=== PATIENT | male | born 1970 | race Caucasian/White ===

== ENCOUNTER → 2018-08-13 14:19 | Outpatient (CLI) | payer BC, SELFPAY ==
[2018-08-13 10:04] VITALS: BMI 25.0
== END ==
PROVIDERS: Family Provider Family Medicine; PCP Family Medicine; Referring Provider Physician Assistant; Visit Provider Physician Assistant
DX: J02.9 Acute pharyngitis, unspecified (principal)
CPT/HCPCS: 87081

== ENCOUNTER 2018-09-19 06:50 | Emergency (ER) | payer BC, SELFPAY ==
[2018-08-13 10:04] VITALS: BMI 25.0
[2018-09-19 06:51] VITALS: BP 172/99; PULSE 105; RESP 18; TEMP 37; O2SAT 100; BMI 27.2
--- NOTE | 2018-09-19 07:05 | ED.VISSUMM ---
- ER Visit Summary Date of Service: 09/19/18 Chief Complaint: Rectal pain History of Present Illness: The patient is a 48 M presents to the emergency department with rectal pain. The patient is otherwise healthy. He only has history of depression. He states on Saturday, he began to have some tenderness around his rectum especially when trying move his bowels. He states he felt a small lump. He thought that it may have been a hemorrhoid. He is tried some topical therapy with little improvement. Over the past 2 days, the pain is worsened. He states it is very uncomfortable especially when he is walking. He has not been straining to move his bowels. He states the area has gotten more swollen. He is also been having some difficulty urinating and having a decreased stream which he states is abnormal for him. He does not think he had fever. He has no history of immunosuppression. He denies any history of inflammatory bowel disease. Physical Examination: Vital signs reviewed General: Well-nourished, well-developed Head: Normocephalic, atraumatic Eyes: Pupils equal and reactive, extraocular muscles intact Neck, supple, no lymphadenopathy Heart: Regular rate and rhythm Respiratory: No distress, clear bilaterally Abdomen: Soft, nontender, nondistended, no peritoneal signs Rectal exam: Patient does have perianal abscess at the 6 o'clock position with significant tenderness. Mild induration. No crepitus. No evidence of Karla. Back: Nontender Extremities: Nontender, no edema, no cords Skin: Normal color no rash Neuro: Alert and oriented, no focal or lateralizing deficits Test Results: [] Emergency Department Course and Treatment: On patient arrival, I did discuss his case with Dr. Ann. She actually came down to the emergency department and evaluated him. He was consented for conscious sedation and incision and drainage. The patient was sedated with a total of 270 mg of propofol. The procedure was completed by Dr. Ann. Purulence was able to be expressed and a culture was sent. The patient was observed. He will be kept on oral antibiotics, analgesics, and stool softeners. He was counseled on concerning symptoms and reasons to return. He is going to follow with Dr. Ann in the office on Saturday or return with any worsening symptoms. Treatment Plan: [] Disposition: Discharge Impression: 1. Perianal abscess with incision and drainage by general surgery 2. Conscious sedation by emergency physician This note was generated with [employer] dictation software. It may contain incorrect words, spelling, and punctuation that were not noted in review of the chart prior to signing ED Disposition - Plan for ED Patient: Disposition: Home or Assisted Living Instructions: ED Chastity Anal Abscess IandD Prescriptions: Oxycodone HCl/Acetaminophen [Percocet 5/325] 1 tab PO Q6H PRN PRN 3 Days #12 tab PRN Reason: Pain Amox/Clavulanate Tablet [Augmentin Tablet] 875 mg PO Q12H #20 tab Docusate Sodium [Colace] 100 mg PO DAILY #20 cap Referrals: Rosa Ann MD [STAFF PHYSICIAN] - 3-5 Days
[2018-09-19 07:21] LABS: Absolute Lymphocyte Count 1.47 X10^3/ul (0.83-4.51); Basophil# 0.02 X10^3/uL; Basophil% 0.2 % (0-1); Eosinophil# 0.07 X10^3/uL; Eosinophils% 0.6 % (0-5); Hematocrit 38.3 % (40-54); Hemoglobin 12.3 g/dl (13.0-16.5); Lymphocyte # 1.47 X10^3/ul (4.0); Lymphocyte % 12.7 % (19-41); Mean Corp Hgb Conc 32.1 g/gl (32-36); Mean Corpuscular Hgb 30.1 pg (27.0-32.0); Mean Corpuscular Volume 93.6 fL (80-94); Mean Platelet Vol. 8.3 fl (6.2-12.0); Monocyte# 0.94 X10^3/uL; Monocyte% 8.2 % (0-10); Neutrophil # 9.01 X10^3/uL (2.7-7.7); Neutrophil % 78.1 % (47-70); Platelet Count 300 K/mm3 (150-450); RBC Distribution Width CV 13.6 % (11.6-14.6); RBC Distribution Width SD 47.2 fl (35.1-43.9); Red Blood Count 4.09 M/mm3 (4.6-6.2); White Blood Count 11.5 K/mm3 (4.4-11.0)
[2018-09-19 07:22] LABS: POSITIVE COUNT NO; POSITIVE DIFFERENTIAL NO; POSITIVE MORPHOLOGY NO
[2018-09-19] MEDS: Morphine 4 MG/ML Syringe IV (07:25)
[2018-09-19] MEDS: Ondansetron 4 MG/2 ML Vial IV (07:25)
[2018-09-19] MEDS: 0.9% Normal Saline 1,000 ML 1000 ML IV (07:25)
[2018-09-19 07:36] LABS: ALB/GLOB Ratio 0.8 RATIO (0.9-2.4); AST(SGOT) 13 U/L (15-37); Alanine Aminotransfer ALT/SGPT 19 U/L (16-61); Albumin, Serum 3.6 g/dL (3.2-5.0); Alkaline Phosphatase 68 U/L (45-117); Anion Gap 7 (5-15); BUN 14 mg/dL (7-18); BUN/Creat Ratio 18.1 RATIO (10-20); Calcium,Total 8.7 mg/dL (8.5-10.1); Chloride 106 mmol/L (98-107); Creatinine, Serum 0.78 mg/dL (0.70-1.30); EST Glomerular Filtration Rate 115 mL/min (>60); Est Glom Filt Rate - Afr Amer 139 mL/min (>60); Estimated Creatinine Clearance 129.89 ml/min; Globulin 4.5 g/dL (2.2-4.2); Glucose 129 mg/dL (74-106); Potassium 3.7 mmol/L (3.5-5.1); Protein, Total 8.1 g/dL (6.4-8.2); Sodium Level 140 mmol/L (136-145)
[2018-09-19 07:40] VITALS: BP 147/95; PULSE 87; RESP 12; O2SAT 100
[2018-09-19 07:47] VITALS: BP 126/72; BP 130/76; BP 132/80; BP 133/76; BP 150/98; PULSE 107; PULSE 84; PULSE 86; PULSE 88; PULSE 89; RESP 13; RESP 17; RESP 18; RESP 21; RESP 22; O2SAT 100; O2SAT 94; O2SAT 95; O2SAT 96; O2SAT 97
[2018-09-19] MEDS: Propofol 200 MG/20 ML Vial IV BOLUS (08:09)
[2018-09-19 08:11] VITALS: BP 142/77; O2SAT 97
[2018-09-19 08:13] VITALS: BP 142/77; PULSE 87; RESP 17; O2SAT 98
--- NOTE | 2018-09-19 08:40 | PCM.OPRPT ---
Report of Operation Date of Procedure: 09/19/18 Pre-Operative Diagnosis: perianal abscess Post-Operative Diagnosis: same Surgery/Procedure Performed:: incision and drainage of perianal abscess Description of Surgical Findings:: perianal abscess at 5 -6 oclock location, extends radially Type of Anesthesia:: MAC Anesthesiologist: Guicho Collins Specimen's removed: culture of purulent fluid from abscess Estimated Blood Loss (mL): < 10 ml Fluids Replaced: 100 cc RL Description of Procedure: Asked to see patient in ED with perianal abscess. Concern over some urinary complaints as well, but by my examination, abscess does not extend deep into perineum so should not be affecting urethra After informed consent was given, the patient was placed in the prone position. IV conscious sedation was then administered by the ED physician. The patient?s p;erianal area was prepped with iodine. The skin and subcutaneous tissues in and around the lesion were then infiltrated with 1% xylocaine with epinephrine - total of 20 ml used. A skin incision was then made with a 15 blade scalpel overlying the lesion in a radial, elliptical fashion so as to unroof the abscess cavity. Purulent fluid emanated from this and thus the abscess was drained. Cultures were taken of this fluid. Hemostasis was achieved by pressure application. The wound cavity was 4 x 2 cm with a depth of 1.5 cm. The cavity was densely packed with gauze. Dressing was applied over wound. The patient tolerated the procedure well. - Complications none noted
[2018-09-19 09:00] VITALS: BP 136/74; PULSE 62; RESP 15; O2SAT 98
[2018-09-19] MEDS: Amox/Clavulanate 875 MG Tablet PO (09:10)
== END 2018-09-19 09:38 | disposition home or self-care (01) ==
PROVIDERS: Emergency Provider Emergency Medicine; Family Provider Family Medicine; PCP Family Medicine
DX: K61.0 Anal abscess (principal); R39.12 Poor urinary stream; F32.9 Major depressive disorder, single episode, unspecified; Z79.899 Other long term (current) drug therapy
CPT/HCPCS: 46050; 10060; 80053; 85025; 87070; 87075; 87076; 87077; 87186; 87205; 96361; 96374; 96375; 99152; 99285; J7030; A4216; J2405

== ENCOUNTER 2021-05-23 11:13 | Outpatient (CLI) | payer BC, SELFPAY ==
[2021-05-23 15:25] LABS: ALB/GLOB Ratio 0.9 RATIO (0.9-2.4); AST(SGOT) 33 U/L (15-37); Alanine Aminotransfer ALT/SGPT 62 U/L (16-61); Alkaline Phosphatase 66 U/L (45-117); Anion Gap 11 (5-15); BUN 14 mg/dL (7-18); BUN/Creat Ratio 18.3 RATIO (10-20); Calcium,Total 9.2 mg/dL (8.5-10.1); Chloride 101 mmol/L (98-107); Cholesterol 259 mg/dL (200); Creatinine, Serum 0.77 mg/dL (0.70-1.30); EST Glomerular Filtration Rate 115 mL/min (>60); Est Glom Filt Rate - Afr Amer 139 mL/min (>60); Globulin 4.4 g/dL (2.2-4.2); Glucose 100 mg/dL (74-106); High Density Lipoprotein 75 mg/dL; Potassium 3.8 mmol/L (3.5-5.1); Protein, Total 8.4 g/dL (6.4-8.2); Sodium Level 138 mmol/L (136-145); Triglycerides 162 mg/dL; Very Low Density Lipoprotein 32 mg/dL (5-40)
== END 2021-05-23 23:59 | disposition short-term general hospital (02) ==
LOC: MFPLAB 11:14
PROVIDERS: PCP Family Medicine; Referring Provider Family Medicine; Visit Provider Family Medicine
DX: Z00.00 Encounter for general adult medical examination without abnormal findings (principal)
CPT/HCPCS: 36415; 80053; 80061

== ENCOUNTER → 2022-10-15 | Outpatient (CLI) | payer BC, SELFPAY ==
[2022-10-15 11:09] LABS: ALB/GLOB Ratio 0.9 RATIO (0.9-2.4); AST(SGOT) 35 U/L (15-37); Alanine Aminotransfer ALT/SGPT 59 U/L (16-61); Alkaline Phosphatase 64 U/L (45-117); Anion Gap 8 (5-15); BUN 12 mg/dL (7-18); BUN/Creat Ratio 15.6 RATIO (10-20); Calcium,Total 9.3 mg/dL (8.5-10.1); Chloride 104 mmol/L (98-107); Creatinine, Serum 0.77 mg/dL (0.70-1.30); EST Glomerular Filtration Rate 114 mL/min (>60); Est Glom Filt Rate - Afr Amer 137 mL/min (>60); Globulin 4.4 g/dL (2.2-4.2); Glucose 101 mg/dL (74-106); PSA,Total- Diagnostic 1.15 ng/mL (0.0-4.0); Protein, Total 8.4 g/dL (6.4-8.2); Sodium Level 139 mmol/L (136-145)
== END | disposition home or self-care (01) ==
LOC: MTLAB 08:49
PROVIDERS: PCP Family Medicine; Referring Provider Family Medicine; Visit Provider Family Medicine
DX: R73.01 Impaired fasting glucose (principal); Z12.5 Encounter for screening for malignant neoplasm of prostate
CPT/HCPCS: 36415; 80053; 84153

== ENCOUNTER 2022-12-03 04:05 | Emergency (ER) | payer BC, SELFPAY ==
[2022-12-03 04:08] VITALS: BP 200/113; PULSE 87; RESP 24; TEMP 36.4; O2SAT 99
[2022-12-03 04:36] VITALS: O2SAT 97
--- NOTE | 2022-12-03 04:36 | EKG12_ITS ---
Test Reason : CP Blood Pressure : / mmHG Vent. Rate : 072 BPM Atrial Rate : 072 BPM P-R Int : 144 ms QRS Dur : 098 ms QT Int : 408 ms P-R-T Axes : 010 -12 -03 degrees QTc Int : 446 ms Normal sinus rhythm Minimal voltage criteria for LVH, may be normal variant ( R in aVL ) Borderline ECG Confirmed by ANNY HIGGINBOTHAM, CATHY ([id number]), editor in chief newspaper [employer]OD[employer]IG[employer] ([id number]) on 12/05/2022 9:13:59 AM Referred By: PC Confirmed By:CATHY MCCORMICK MD
--- NOTE | 2022-12-03 04:45 | RAD_ITS ---
EXAM: XR CHEST, 1 VIEW CLINICAL INDICATION: chest pain TECHNIQUE: Frontal view of the chest. COMPARISON: Two-view chest 05/08/2016 FINDINGS: LUNGS AND PLEURAL SPACES: Unremarkable. No consolidation or edema. No pneumothorax. No effusion. HEART: Unremarkable. Cardiac silhouette not enlarged. MEDIASTINUM: Central airways and mediastinal contour are unremarkable. BONES/JOINTS: Unremarkable. SOFT TISSUES: Unremarkable. RAD/Chest 1 View (Portable) IMPRESSION: No radiographic evidence of acute cardiopulmonary disease. Electronically Signed: Reynaldo Hood MD at 5:04 EDT ,
[2022-12-03] MEDS: hydrOXYzine PAM 25 MG Capsule 50 MG PO (04:47)
--- NOTE | 2022-12-03 04:53 | EX.ED.DYSGE1 ---
HPI History of Present Illness Chief Complaint: Anxiety Narrative Narrative: Patient presents with anxiety although he has some chest pain associated with this. He has a history of anxiety and he has been seen in the ED for anxiety prior but not for a few years. He is hypertensive as he walks into the emergency department however he was only recently found to have slight hypertension at PCPs office but he is not on any antihypertensive currently. No back pain or tearing sensation. There is no pleuritic component. No recent fevers or chills. Patient does not have any lower extremity SUKHJINDER or calf pain or any DVT or PE risk factors [facility] Medical History (Updated 12/03/22 @ 06:[address] Sundeep Franco MD) Bloody stools Diarrhea Fatigue Hay fever Severe headache Home Medications citalopram 10 mg tablet 20 mg PO DAILY 04/09/14 [History Last Taken Unknown] atorvastatin 20 mg tablet 20 mg PO QHS 05/08/16 [History Last Taken Unknown] hydrochlorothiazide 25 mg tablet 25 mg PO DAILY #30 tabs 12/03/22 [Rx Last Taken Unknown] Allergy/AdvReac Type Severity Reaction Status Date / Time No Known Allergies Allergy Verified 12/03/22 04:06 Surgical History H/O hernia repair H/O vasectomy Social History (Updated 08/13/18 @ 10:38 by Gavin MCRAE, PA) Smoking Status: Never smoker alcohol intake: current ROS ROS ED ROS Narrative Past medical history: Reviewed Medications: Reviewed Social history: Noncontributory Review of systems: All systems negative except as indicated General: No fever Eyes: No visual changes ENT: No upper airway congestion, normal voice Neck: No neck pain Cardiovascular: As in HPI Respiratory: No shortness of breath or cough Gastrointestinal: No abdominal pain, nausea vomiting or diarrhea Genitourinary: No dysuria Musculoskeletal: Denies myalgias no difficulty with ambulation Skin: No rash Neurological: No memory loss, confusion or any focal weakness Psych: As in HPI Hematologic: No easy bleeding or easy bruising EXAM Physical Exam Narrative Exam Narrative: Physical exam General: Well nourished, Well developed, No Acute Distress Head: Normocephalic, Atraumatic Eyes: Conjunctiva not pale ENT: Moist mucous membranes Neck: Supple, Nontender, No lymphadenopathy Cardiovascular: Regular rate, Regular rhythm Respiratory: No distress, CTA bilaterally Abdomen: Soft, Nontender, Nondistended Back: Nontender, Normal Inspection. Negative for: CVA tenderness Extremities: Nontender, No edema Skin: Normal color, No rash Neurological: Alert, Normal Strength, Normal Sensation Psychological: Slightly anxious Const Vital Signs: 12/03/22 04:08 12/03/22 04:36 Temperature 97.5 F L Temperature Source Temporal Pulse Rate 87 Respiratory Rate 24 H Blood Pressure 200/113 H Blood Pressure Mean 142 Pulse Ox 99 97 Oxygen Delivery Method Room Air MDM MDM MDM Narrative Medical decision making narrative: Patient has a normal emergency department work-up. He is still hypertensive. He has been told he has hypertension by his PCP and was going to start him on antihypertensives at the next visit however I will start him on antihypertensives today since he is showing to have hypertension. I do not believe the patient has any evidence of pulmonary embolism. Chest x-ray does not show any pneumothorax or pneumonia. He may have anxiety however as I told him the ED is a tough place to diagnose anxiety since most people are anxious about somatic diseases anyway. I do not believe the patient meets criteria for admission. He appears well and will be discharged in stable condition. Lab Data Labs: Laboratory Results - last 24 hr 12/03/22 04:45 WBC 5.3 RBC 4.41 L Hgb 14.7 Hct 41.7 MCV 94.6 H MCH 33.3 H MCHC 35.3 RDW Std Deviation 41.1 RDW Coeff of Wendy 11.8 Plt Count 206 MPV 8.4 Immature Gran % (Auto) 0.200 Neut % (Auto) 67.9 Lymph % (Auto) 16.5 L [place] % (Auto) 13.1 H Eos % (Auto) 1.7 Baso % (Auto) 0.6 Absolute Neuts (auto) 3.6 Absolute Lymphs (auto) 0.87 Nucleated RBC % 0 Sodium 139 Potassium 3.6 Chloride 106 Carbon Dioxide 26.0 Anion Gap 7 BUN 11 Creatinine 0.86 Estim Creat Clear Calc 112.79 Est GFR (MDRD) Af Amer 120 Est GFR (MDRD) Non-Af 99 BUN/Creatinine Ratio 12.7 Glucose 123 H Calcium 9.0 Troponin I High Sens 5 Radiography Diagnostic Testing: Clinical Impression(s) from Imaging Studies Chest X-Ray 12/03/22 04:45 IMPRESSION: No radiographic evidence of acute cardiopulmonary disease. Electronically Signed: Reynaldo Hood MD at 5:04 EDT , Chest x-ray read by me as normal Rhythm Strip Rhythm Strip: Sinus Rhythm Rate: 72 Ectopy: None EKG Initial EKG: Comments: Sinus rhythm with a rate of 72. Normal CO and QTc intervals. No ischemic changes. Interpreted by emergency doctor Discharge Plan Triage Chief Complaint: Anxiety ED Provider: Sundeep Franco Dx/Rx/DC Orders Clinical Impression: Chest pain, Hypertension Instructions: Controlling High Blood Pressure, ED Chest Pain, Uncertain Cause Prescriptions: New hydrochlorothiazide 25 mg tablet 25 mg PO DAILY Qty: 30 0RF No Action citalopram 10 MG tablet 20 mg PO DAILY atorvastatin 20 MG tablet 20 mg PO QHS Primary Care Provider: Mahendra Menchaca Referrals: Mahendra Menchaca MD [Primary Care Provider] - 3-5 Days Disposition Disposition: Home, Self Care
[2022-12-03 04:58] LABS: Absolute Lymphocyte Count 0.87 X10^3/uL (0.83-4.51); Absolute Neutrophil Count 3.6 X10^3/uL (2.0-7.7); Basophil# 0.03 X10^3/uL; Basophil% 0.6 % (0-1); Eosinophil# 0.09 X10^3/uL; Eosinophils% 1.7 % (0-5); Hematocrit 41.7 % (40-54); Hemoglobin 14.7 g/dL (13.0-16.5); Lymphocyte # 0.87 X10^3/ul (0.83-4.51); Lymphocyte % 16.5 % (19-41); Mean Corp Hgb Conc 35.3 g/dL (32-36); Mean Corpuscular Hgb 33.3 pg (27.0-32.0); Mean Corpuscular Volume 94.6 fL (80-94); Mean Platelet Vol. 8.4 fl (6.2-12.0); Monocyte# 0.69 X10^3/uL; Monocyte% 13.1 % (0-10); NRBC Flagged by Analyzer 0 % (0-5); Neutrophil # 3.59 X10^3/uL (2.7-7.7); Neutrophil % 67.9 % (47-70); Platelet Count 206 K/mm3 (150-450); RBC Distribution Width CV 11.8 % (11.6-14.6); RBC Distribution Width SD 41.1 fl (35.1-43.9); Red Blood Count 4.41 M/mm3 (4.6-6.2); White Blood Count 5.3 K/mm3 (4.4-11.0)
[2022-12-03 05:47] LABS: Anion Gap 7 (5-15); BUN 11 mg/dL (7-18); BUN/Creat Ratio 12.7 RATIO (10-20); Chloride 106 mmol/L (98-107); Creatinine, Serum 0.86 mg/dL (0.70-1.30); EST Glomerular Filtration Rate 99 mL/min (>60); Est Glom Filt Rate - Afr Amer 120 mL/min (>60); Estimated Creatinine Clearance 112.79 ml/min; Glucose 123 mg/dL (74-106); Potassium 3.6 mmol/L (3.5-5.1); Sodium Level 139 mmol/L (136-145); Troponin-I HS (w/2H Reflex) 5 pg/mL (3.0-78.0)
[2022-12-03 06:50] LABS: Troponin-I HS 5 pg/mL (3.0-78.0)
[2022-12-03 06:53] LABS: Reflex Troponin-HS? (from REC) Y
[2022-12-03 06:54] VITALS: BP 157/101; PULSE 67; RESP 14; O2SAT 94
[2022-12-03 07:01] VITALS: BP 157/101
== END 2022-12-03 07:02 | disposition home or self-care (01) ==
PROVIDERS: Emergency Provider Emergency Medicine; PCP Family Medicine; Visit Provider Emergency Medicine
DX: R07.9 Chest pain, unspecified (principal); I10 Essential (primary) hypertension; F41.9 Anxiety disorder, unspecified; Z79.899 Other long term (current) drug therapy
CPT/HCPCS: 71045; 80048; 84484; 85025; 93005; 99285; A4216

== ENCOUNTER → 2022-12-06 | Outpatient (CLI) | payer BC, SELFPAY ==
[2022-12-06 12:18] LABS: Color, Urine Yellow (Yellow); Glucose, Dipstick Normal (Normal); Ketone-Dipstick 5 mg/dl (Negative); Leukocyte Esterase-Dipstick 25 /ul (Negative); Nitrite-Dipstick Negative (Negative); Occult Blood-Urine Negative /ul (Negative); Protein-Dipstick 15 mg/dl (Negative); Urine Clarity Clear (Clear); Urine Urobilinogen Normal (Normal)
[2022-12-06 12:21] LABS: Urine Bilirubin Dipstick 1 mg/dL (Negative)
[2022-12-06 12:37] LABS: Anion Gap 8 (5-15); BUN 16 mg/dL (7-18); BUN/Creat Ratio 17.1 RATIO (10-20); Calcium,Total 9.5 mg/dL (8.5-10.1); Chloride 102 mmol/L (98-107); Creatinine, Serum 0.94 mg/dL (0.70-1.30); EST Glomerular Filtration Rate 91 mL/min (>60); Est Glom Filt Rate - Afr Amer 110 mL/min (>60); Glucose 118 mg/dL (74-106); Potassium 3.5 mmol/L (3.5-5.1); Sodium Level 136 mmol/L (136-145)
[2022-12-10 14:08] LABS: PROEL- A/G Ratio 1.3 (0.7-1.7); PROEL- Albumin 4.5 g/dL (2.9-4.4); PROEL- Alpha-1 Globulin 0.2 g/dL (0.0-0.4); PROEL- Alpha-2 Globulin 0.8 g/dL (0.4-1.0); PROEL- Beta Globulin 1.3 g/dL (0.7-1.3); PROEL- Gamma Globulin 1.2 g/dL (0.4-1.8); PROEL- Globulin, Total 3.4 g/dL (2.2-3.9); PROEL- TOTAL PROTEIN 7.9 g/dL (6.0-8.5); PROELU- Albumin, Urine 34.9 % (.); PROELU- Alpha-1-Globulin,Ur 0.4 % (.); PROELU- Alpha-2-Globulin,Ur 22.4 % (.); PROELU- Beta Globulin, Ur 24.9 % (.); PROELU- Gamma Globulin, Ur 17.4 % (.); Total Protein, Ur 17.7 mg/dL (Not Estab.)
== END | disposition home or self-care (01) ==
LOC: MFPLAB 10:34
PROVIDERS: Nurse Practitioner Family; PCP Family Medicine; Visit Provider Family Medicine
DX: R80.9 Proteinuria, unspecified (principal); I10 Essential (primary) hypertension
CPT/HCPCS: 36415; 80048; 81002; 84165; 84166

== ENCOUNTER → 2024-04-24 | Outpatient (CLI) | payer BC, SELFPAY ==
--- NOTE | 2024-04-24 10:15 | RAD_ITS ---
STUDY: X-RAY - RIGHT FOOT CLINICAL: Male, 54 years old. Strain TECHNIQUE: 3 view(s) of the foot. COMPARISON: None. FINDINGS: Normal talus, calcaneus, and tarsal bones. Normal visualized subtalar, talonavicular, calcaneocuboid, tarsal and tarsometatarsal articulations. There is acute nondisplaced fracture of the base of the fifth metatarsal. There is cortical thickening of the distal shaft of the second metatarsal consistent with healed or healing fracture. Normal metatarsophalangeal joint of the great toe. Normal tibial and fibular sesamoid bones. Normal interphalangeal joint of the great toe. Normal phalanges of the great toe. Normal second through fifth metatarsophalangeal joints. Normal interphalangeal joints and phalanges of the lesser toes. The soft tissue structures are unremarkable. RAD/Foot min 3 Views IMPRESSION: Fifth metatarsal fracture. Healed or healing second metatarsal fracture. Electronically Signed: Lobito Beltrán MD at 10:32 EST ,
== END | disposition home or self-care (01) ==
LOC: MTRAD 10:15
PROVIDERS: PCP Family Medicine; Referring Provider Physician Assistant Surgical; Visit Provider Physician Assistant Surgical
DX: S96.911A Strain of unspecified muscle and tendon at ankle and foot level, right foot, initial encounter (principal); X58.XXXA Exposure to other specified factors, initial encounter
CPT/HCPCS: 73630